=== PATIENT | male | born 1985 | race Caucasian/White ===

== ENCOUNTER 2017-11-09 22:41 | Emergency (ER) | payer OTHER ==
[~2017-11-09] VITALS: Ht 182.9 cm; Wt 95.0 kg
[~2017-11-09 22:41] MED LIST: LAMI25TA3 PO; LATU80TA PO; LEXA5TAB PO
[2017-11-09 22:55] VITALS: BP 146/105; PULSE 131; RESP 18; TEMP 98.5; O2SAT 95
[2017-11-09] MEDS ORDERED: SODIUM CHLORIDE 0.9% FLUSH 10 ML FLUSH IV FLUSH ONE (23:30)
[2017-11-09] MEDS ORDERED: SODIUM CHLOR 0.9% 1000 ML INJ 1,000 ML IV ONE (23:30)
[2017-11-09 23:38] VITALS: BP 153/90; PULSE 122; RESP 20; O2SAT 98
[2017-11-09 23:42] VITALS: BP 134/95; PULSE 118; PULSE 121; RESP 20; O2SAT 95
[2017-11-10] VITALS (10 sets, daily range): BP systolic 97–130; BP diastolic 53–79; PULSE 80–117; RESP 14–19; O2SAT 91–96
[2017-11-10] MEDS ORDERED: SODIUM CHLOR 0.9% 1000 ML INJ 1,000 ML IV ONE (00:30)
--- NOTE | 2017-11-10 01:00 | PD ---
HPI Chief Complaint: Alcohol/Drug Intoxication Time Seen by Provider: 23:19 Travel History International Travel<30 days: No Contact w/Intl Traveler<30days: No Traveled to known affect area: No History of Present Illness HPI Patient is a 32-year-old male presenting to the emergency Department under Mancuso 's act due to intoxication. Patient states the police were called because he had been drinking at home and he was out in the yard smoking a cigarette and fell to the ground and his girlfriend thought he couldn't get up so she called the police. Patient admits to drinking 8 beers from 10 PM on last night. He denies any illicit drug use, he states he was drinking because his relationship with his girlfriend has been strained. She is reportedly, please numerous times in the relationship, he states that she uses the police to essentially get her way. He denies any suicidal, homicidal ideations. He denies any hallucinations. He reports a history of schizoaffective disorder and states he is in remission. He is not currently taking any medications. He does report feeling more anxious, he states she's taken 2 of his girlfriend's Xanax in the last 48 hours. [facility] Past Medical History Bipolar Disorder: Yes Depression: Yes Psychiatric: Yes (SCHIZOAFFECTIVE) Past Surgical History Surgical History: No Previous Surgery Social History Alcohol Use: Yes ("FEW BEERS" DAILY R/T STRESS) Tobacco Use: Yes (5-10 CIGS DAILY) Substance Use: No Allergies-Medications (Allergen,Severity, Reaction): Coded Allergies: No Known Allergies (Unverified Adverse Reaction, Unknown, 11/09/17) Reported Meds & Prescriptions Reported Meds & Active Scripts Active No Active Prescriptions or Reported Medications Review of Systems Except as stated in HPI: all other systems reviewed are Neg Psychiatric: Positive: Anxiety, Mood Disorder, Substance Abuse Physical Exam Narrative GENERAL: Well-developed, well-nourished, alert male. Presenting in no acute distress. SKIN: Warm and dry. HEAD: Atraumatic. Normocephalic. EYES: Pupils equal and round. No scleral icterus. No injection or drainage. ENT: No nasal bleeding or discharge. Mucous membranes pink and moist. NECK: Trachea midline. No JVD. CARDIOVASCULAR: Tachycardic RESPIRATORY: No accessory muscle use. Clear to auscultation. Breath sounds equal bilaterally. GASTROINTESTINAL: Abdomen soft, non-tender, nondistended. Hepatic and splenic margins not palpable. MUSCULOSKELETAL: Extremities without clubbing, cyanosis, or edema. No obvious deformities. NEUROLOGICAL: Awake and alert. No obvious cranial nerve deficits. Motor grossly within normal limits. Five out of 5 muscle strength in the arms and legs. Normal speech. PSYCHIATRIC: Appropriate mood and affect; insight and judgment normal. Data Data Last Documented VS Vital Signs Date Time Temp Pulse Resp B/P (MAP) Pulse Ox O2 Delivery O2 Flow Rate FiO2 11/10/17 02:22 98 18 94 Nasal Cannula 2.00 11/09/17 22:55 98.5 Orders Orders Alcohol (Ethanol) (11/09/17 23:19) Iv Access Insert/Monitor (11/09/17 23:20) Sodium Chlor 0.9% 1000 Ml Inj (Ns 1000 M (11/09/17 23:30) Sodium Chloride 0.9% Flush (Ns Flush) (11/09/17 23:30) Hydroxyzine Pamoate (Vistaril) (11/10/17 00:15) Drug Screen, Random Urine (11/10/17 00:23) Sodium Chlor 0.9% 1000 Ml Inj (Ns 1000 M (11/10/17 00:30) Labs Laboratory Tests Test 11/09/17 23:30 11/10/17 00:20 Ethyl Alcohol Level 295 MG/DL Urine Opiates Screen NEG Urine Barbiturates Screen NEG Urine Amphetamines Screen NEG Urine Benzodiazepines Screen NEG Urine Cocaine Screen NEG Urine Cannabinoids Screen NEG MDM Medical Decision Making Medical Screen Exam Complete: Yes Emergency Medical Condition: Yes Interpretation(s) Laboratory Tests Test 11/09/17 23:30 11/10/17 00:20 Ethyl Alcohol Level 295 MG/DL Urine Opiates Screen NEG Urine Barbiturates Screen NEG Urine Amphetamines Screen NEG Urine Benzodiazepines Screen NEG Urine Cocaine Screen NEG Urine Cannabinoids Screen NEG Vital Signs Date Time Temp Pulse Resp B/P (MAP) Pulse Ox O2 Delivery O2 Flow Rate FiO2 11/10/17 00:16 117 19 130/71 (90) 94 Room Air 11/09/17 23:42 118 20 134/95 (108) 95 Room Air 11/09/17 23:38 122 20 153/90 (111) 98 Room Air 11/09/17 22:55 98.5 131 18 146/105 (119) 95 Differential Diagnosis Acute intoxication versus noncompliance versus mood disorder versus other Narrative Course Patient is a 32-year-old male presented to the emergency Department under Mancuso' s act. Patient was at his home intoxicated. He has no physical complaints. He is mildly tachycardic on arrival, patient be given IV fluids, IV access is established. Patient is in no distress. He is alert and oriented. Will obtain alcohol level and urine drug screen. Alcohol level is 295. Urine drug screen is negative. Patient was tachycardic on arrival, his heart rate is now 92 when he is resting comfortably. His vital signs have been stable. Patient received a total of 2 L of IV fluids. Patient is stable, he will be allowed to sleep and often when he is sober and demonstrates safe ambulation he will be discharged from the emergency department. Diagnosis Primary Impression: Acute alcohol intoxication Qualified Codes: F10.929 - Alcohol use, unspecified with intoxication, unspecified Referrals: [facility] day Patient Instructions: General Instructions Additional Instructions: Follow-up with Eric Mckeon Avoid over use of alcohol Return to emergency department for any new or worsening symptoms Med/Other Pt SpecificInfo: No Change to Meds Scripts No Active Prescriptions or Reported Meds Disposition: 01 DISCHARGE HOME Condition: Stable Gretta Huynh Nov 10, 2017 01:00
== END 2017-11-10 10:06 | disposition home or self-care (01) ==
LOC: NEPD 22:41
DX: F10.929 Alcohol use, unspecified with intoxication, unspecified (principal); R00.0 Tachycardia, unspecified; Y90.8 Blood alcohol level of 240 mg/100 ml or more; F31.9 Bipolar disorder, unspecified; F25.9 Schizoaffective disorder, unspecified; Z72.0 Tobacco use
CPT/HCPCS: 80307; 96360; 96361; 99284; J7030